=== PATIENT | female | born 1945 | race Caucasian/White ===

== ENCOUNTER → 2017-06-14 | Outpatient (CLI) | payer MEDICARE ==
[~2017-06-14] MED LIST: DAYPRO600 M1 PO; FLONASE ALLERG9.9 ML NAS; HYDR25T PO; K-TAB20 MEQ PO; LIDODERM 5% PATC1 EA T; LISINOPRIL5 MG PO; LOPRESSOR25 MG PO; LOPRESSOR50 M1 PO; MACROBID100 M1 PO; MEDROL DOSEPAK4 MG PO; METOPROLOL25 MG PO; MOTRIN600 MG PO; NORVASC10 MG PO; PERCOCET 325 MG1 TA2 PO; PRILOSEC20 MG PO; VICODIN 500 MG-1 TAB PO; VICODIN1 TAB PO; ZANTAC150 MG PO
== END | disposition home or self-care (01) ==
LOC: RAD 10:52
DX: Z13.820 Encounter for screening for osteoporosis (principal); N95.9 Unspecified menopausal and perimenopausal disorder; Z78.0 Asymptomatic menopausal state

== ENCOUNTER → 2017-06-23 | Outpatient (CLI) | payer MEDICARE | END | disposition home or self-care (01) | LOC: US 11:12 | DX: R42 Dizziness and giddiness (principal); I10 Essential (primary) hypertension ==

== ENCOUNTER 2018-06-13 16:29 | Emergency (ER) | payer MEDICARE ==
[~2018-06-13] VITALS: Wt 83.9 kg
--- NOTE | ~2018-06-13 | EKG ---
[place], [place] ELECTROCARDIOGRAM REPORT NAME: ANGELES ESTRADA UNIT #: [id number] ROOM: DOCTOR: EPIPHANY DRAFT REPORT BIRTHDATE: [birth year] [facility] Test Date: 2018-06-13 Test Time: 19:13:58 Pat Name: ANGELES ESTRADA Department: ER Room: 2 Gender: F [employer]umin[employer] Siding Installer: ERICA : 1945 Requested By: TANG SORTO Order Number: [id number] Reading MD: Matti Murray MD Measurements Intervals [place] Rate: 78 P: 42 ME: 188 QRS: 22 QRSD: 101 T: 12 QT: 393 QTc: 448 Interpretive Statements Sinus rhythm RSR' in V1 or V2, right VCD or RVH Electronically Signed On 06-14-2018 12:26:35 PST by Matti Murray MD CM:EKGRPT:ELECTROCARDIOGRAM REPORT 12 1226 TANG SORTO MD EPIPHANY DRAFT REPORT TANG SORTO MD
[~2018-06-13 16:29] MED LIST changes: +NAPROSYN500 MG PO
[2018-06-13 17:29] LABS: BASO % 0.7 % (0.0-1.0); EOS # 0.4 10*3/uL (0.0-0.4); EOS % 8.9 % (1.0-4.0); HEMATOCRIT 38.6 % (37.0-47.0); HEMOGLOBIN 12.3 g/dl (12.0-16.0); LYMPH # 1.9 10*3/uL (1.3-4.4); LYMPH % 41.9 % (27.0-41.0); MEAN CELL VOLUME 88.1 fl (81.0-99.0); MEAN CORPUSCULAR HGB 28.1 pg (27.0-31.0); MEAN CORPUSCULAR HGB CONC 31.9 g/dl (33.0-37.0); MEAN PLATELET VOLUME 11.6 fl (9.6-12.3); MONO # 0.3 10*3/uL (0.1-1.0); MONO % 7.5 % (3.0-9.0); NEUT # 1.8 10*3/uL (2.3-7.9); NEUT % 40.8 % (47.0-73.0); PLATELET COUNT AUTOMATED 201 10*3/uL (130-400); RED BLOOD COUNT 4.38 10*6/uL (4.10-5.10); RED CELL DISTRI WIDTH 14.3 % (0-14.5); WHITE BLOOD COUNT 4.5 10*3/uL (4.8-10.8)
[2018-06-13 17:44] LABS: ACT PARTIAL THROMBO TIME 22.7 SECONDS (20.8-31.5); INTERNATIONAL NORM RATIO 0.9 (2.0-3.5)
[2018-06-13 17:50] LABS: ALBUMIN 3.3 gm/dl (3.1-4.5); ALKALINE PHOSPHATASE 87 U/L (45-117); BUN 18 mg/dl (7-24); CHLORIDE 110 mmol/L (98-107); CPK 100 U/L (26-192); CREATININE 0.87 mg/dL (0.55-1.02); POTASSIUM 3.5 mmol/L (3.5-5.1); SGOT/AST 18 IU/L (3-35); SGPT/ALT 26 U/L (12-78); SODIUM 142 mmol/L (136-145)
== END 2018-06-13 22:16 | disposition short-term general hospital (02) ==
LOC: ED 16:29
PROVIDERS: Emergency Medicine
DX: M62.81 Muscle weakness (generalized) (principal); R20.2 Paresthesia of skin; R20.0 Anesthesia of skin; I10 Essential (primary) hypertension; Z79.899 Other long term (current) drug therapy